=== PATIENT | male | born 1955 | race Caucasian/White ===

== ENCOUNTER 2019-01-08 15:22 | Emergency (ER) | payer SELFPAY ==
[~2019-01-08] VITALS: Ht 185.4 cm; Wt 94.0 kg
--- NOTE | 2019-01-08 15:58 | NUR ---
ZIGZAG TOPSTITCHER: CALLED FOR ROOM, NO ANSWE
[2019-01-08 16:14] LABS: BASOPHILS # (AUTO) 0.02 x10^3/uL (0-0.1); BASOPHILS % (AUTO) 1 % (0-1); EOSINOPHILS # (AUTO) 0.12 x10^3/uL (0-0.4); EOSINOPHILS % (AUTO) 4 % (1-7); LYMPHOCYTES % (AUTO) 34 % (22-44); MD NO; MEAN CORPUSCULAR HEMOGLOBIN 29.5 pg (27.5-34.5); MEAN CORPUSCULAR HGB CONC 33.2 g/dL (33.2-36.2); MEAN PLATELET VOLUME 8.1 fL (7.4-10.4); MONOCYTES # (AUTO) 0.22 x10^3/uL (0.2-0.8); MONOCYTES % (AUTO) 8 % (2-9); NEUTROPHILS # (AUTO) 1.59 x10^3/uL (1.8-6.8); NEUTROPHILS % (AUTO) 54 % (42-75); PLATELET COUNT 236 x10^3/uL (130-400); RED BLOOD COUNT 4.48 x10^6/uL (4.38-5.82); RED CELL DISTRIBUTION WIDTH 16.9 % (9.4-14.8)
[2019-01-08 16:23] LABS: ALBUMIN 3.6 g/dL (3.4-5.0); ANION GAP 6 mmol/L (5-15); CALCIUM 8.7 mg/dL (8.5-10.1); CHLORIDE 113 mmol/L (98-107); CREATININE 1.37 mg/dL (0.7-1.3)
--- NOTE | 2019-01-08 16:24 | NUR ---
GRIP WRAPPER: PT TO ROOM FROM [facility]
[2019-01-08] MEDS ORDERED: HYDR-3622 PO (16:37)
[2019-01-08] MEDS ORDERED: METF500T17 PO (16:37)
[2019-01-08] MEDS ORDERED: COLC0.6T37 PO (16:37)
[2019-01-08] MEDS ORDERED: CARI250T PO (16:37)
[2019-01-08] MEDS ORDERED: LOSA50TA14 PO (16:37)
[2019-01-08] MEDS ORDERED: NAPR-856 PO (16:37)
[2019-01-08] MEDS ORDERED: AMLO10TA4 PO (16:37)
--- NOTE | 2019-01-08 16:42 | NUR ---
PT TO ED FOR LEFT ELBOW PAIN (PT STATES POSSIBLY RELATED TO GOUT) AND HAS RUN OUT OF ALL MEDICATIONS. PT STATES HE HASN'T HAD MEDS SINCE 12/27/2018. PT CONNECTED TO MONITORS. HTN, 204/123, ALL OTHER VSS. EVELIN SANDIP TO BS FOR ASSESSMENT. AWAITING ORDERS.
[2019-01-08] MEDS ORDERED: HYDROcodone/APAP 5/325 TABLET ONE (17:15)
[2019-01-08] MEDS ORDERED: INDOMETHACIN 50 MG CAPSULE ONE (17:15)
[2019-01-08] MEDS ORDERED: COLCHICINE 0.6 MG CAPSULE ONE (17:16)
[2019-01-08] MEDS ORDERED: INDOMETHACIN 50 MG CAPSULE PO ONE (17:30)
[2019-01-08] MEDS ORDERED: HYDROcodone/APAP 5/325 TABLET PO ONE (17:30)
--- NOTE | 2019-01-08 17:54 | NUR ---
ASSUMED CARE OF PT WHILE PRIMARY RN AT LUNCH. PT GIVEN [place]AN 100MG PO FOR BLOOD PRESSURE.
[2019-01-08] MEDS ORDERED: hydrALAzine 20 MG/ML, 1ML IV ONE (18:00)
[2019-01-08] MEDS ORDERED: SODIUM CHLORIDE FLUSH 10ML SYR IVF ONE (18:00)
[2019-01-08 18:52] LABS: TROPONIN I < 0.015 ng/mL (0.000-0.045)
[2019-01-08] MEDS ORDERED: hydrALAzine 20 MG/ML, 1ML ONE (18:54)
[2019-01-08 20:18] VITALS: BP 168/107
--- NOTE | 2019-01-08 20:18 | NUR ---
PT RESTING IN ROOM. PT REMAINS HTN, 168/107. ALL OTHER VSS ON RA. NO NEEDS EXPRESSED. AWAITING ROOM ASSIGNMENT.
--- NOTE | 2019-01-08 21:00 | NUR ---
THIS TECH ATTEMPTED TO TRANSPORT PT TO THE FLOOR. PT WOULD NOT LET THIS TECH SPEAK OR EVEN INTRODUCE SELF. PT STATES "YOU'RE NOT A DOCTOR, LEAVE." ATTEMPTED TO EXPLAIN THAT HE WAS BEING TRANSPORTED TO ANOTHER ROOM AND PT STATED "I SAID LEAVE."
--- NOTE | 2019-01-08 21:13 | NUR ---
PT UPSET AFTER HOSPITALIST ASSESSMENT. PT REFUSED TO BE ADMITTED AND REFUSED TO SIGN AMA PAPERWORK. IV REMOVED. PT AMB WITH STEADY GAIT TO EXIT WITHOUT ISSUES.
[2019-01-09] MEDS ORDERED: LOSARTAN 50MG TABLET PO SCH (09:00)
[2019-01-09] MEDS ORDERED: COLCHICINE 0.6 MG CAPSULE PO SCH (09:00)
== END 2019-01-08 21:19 | disposition left against medical advice (07) ==
LOC: ED 21:13
DX: M10.022 Idiopathic gout, left elbow (principal); I10 Essential (primary) hypertension; M79.18 Myalgia, other site; N28.9 Disorder of kidney and ureter, unspecified
CPT/HCPCS: 36415; 71045; 73080; 80048; 82040; 84484; 84550; 85025; 93005; 93971; 96374; 99284; J0360